=== PATIENT | male | born 1950 | race Caucasian/White ===

== ENCOUNTER 2022-08-05 13:07 | Outpatient (OUT) | payer MEDICARE, MEDICAID, SELFPAY ==
--- NOTE | 2022-08-05 13:51 | PM.CN ---
Consult Note: HPI Data of Consult Patient: known to practice within the last 3 years Consult date: 08/05/22 Requesting Physician: Karina Flores MD Primary Care Provider: Non-Staff Physician, Family Provider: CESARIO Consult Narrative Reason for consult: Right shoulder pain Narrative: This is a pleasant 72-year-old gentleman who presents for assessment. He notes persistence of right shoulder pain that is exacerbated with abduction and adduction, as well as lateral rotation. He previously underwent a right shoulder cortisone injection, which provided significant relief for greater than a three month period of time. He continues utilizing [employer], which provides relief. He otherwise denies adverse medication side effects or loss of bowel or bladder control. cc:: CC: Karina Flores MD Review of Systems ROS Status of ROS 10 or more systems reviewed and unremarkable except as noted in history and below Exam Constitutional Common normals: no apparent distress, oriented x3 and healthy appearing Respiratory Common normals: normal respiratory effort Effort & inspection: able to speak in complete sentences Extremity Common normals: normal to inspection Other: tenderness to palpation throughout the right shoulder. Pain is elicited with abduction and lateral rotation of the right shoulder. No erythema or signs of infection appreciated. Neuro Common normals: oriented x3, CN's II-XII intact bilaterally and no focal motor deficits Psych Common normals: mental status grossly normal and cooperative Assessment and Plan Assessment and Plan (1) Primary osteoarthritis, right shoulder: Plan this is a pleasant 72-year-old gentleman presents for assessment. He notes persistence of pain throughout his right shoulder that was previously treated well with a right shoulder intra-articular steroid injection. Given his current symptomatology and previous relief, it is prudent to repeat a right shoulder intra-articular injection. He is in agreement with this plan. Medications were reviewed, and no changes were made at this time. He has an upcoming surgery to remove his pannus. Follow-up in three months or sooner, if needed. Procedure: Right shoulder injection Medications: Bupivacaine 0.25% 4cc, kenalog 40mg I explained the details of the procedure to the patient including the risks, benefits, and alternatives.? We had an informed discussion.? The patient verbalized understanding and signed the consent form.? All questions were answered appropriately.? A time-out was performed.? After obtaining a comfortable prone position, the skin overlying the right shoulder was prepped with alcohol 3 times.? The sulcus between the head of the humerus and the acromion was identified.? The needle was inserted in a sterile manner 2 cm inferior and medial to the posterolateral corner of the acromion and was directed anteriorly toward the coracoid process. The contents of the syringe were gently injected without any resistance into the joint space after negative aspiration for blood or other bodily fluids.? The needle was removed and pressure was applied at the injection site to decrease the incidence of ecchymosis and hematoma formation.? A sterile bandage was applied.
== END 2022-08-05 13:08 | disposition home or self-care (01) ==
LOC: PM 13:08
PROVIDERS: Visit Provider Anesthesiology
DX: M25.551 Pain in right hip (principal); M19.011 Primary osteoarthritis, right shoulder
CPT/HCPCS: 20610

== ENCOUNTER 2022-11-28 08:31 | Outpatient (OUT) | payer MEDICARE, MEDICAID, SELFPAY ==
--- NOTE | 2022-11-28 08:34 | P.CN_ITS ---
Consult Note: HPI Data of Consult Patient: known to practice within the last 3 years Requesting Physician: Pam Ramirez NP Primary Care Provider: Non-Staff Physician, Family Provider: DMPERLA Consult Narrative Reason for consult: f/u Narrative: Cory Quan a pleasant 72 year old male presents for evaluation and management of chronic right shoulder pain. Today rating pain 0/10, reports continued relief from right shoulder injection cc:: CC: Pam Ramirez NP Review of Systems ROS Status of ROS 10 or more systems reviewed and unremarkable except as noted in history and below PFSH PFSH Medical History (Updated 08/14/22 @ 14:07 by Jacinta Guthrie) Atherosclerotic cardiovascular disease ?I25.10 - Atherosclerotic heart disease of [place] coronary artery without angina pectoris (ICD-10) Convulsion ?R56.9 - Unspecified convulsions (ICD-10) Depression ?F32.A - Depression, unspecified (ICD-10) Embolism ?I74.9 - Embolism and thrombosis of unspecified artery (ICD-10) Enlarged prostate ?N40.0 - Benign prostatic hyperplasia without lower urinary tract symptoms (ICD-10) High cholesterol ?E78.00 - Pure hypercholesterolemia, unspecified (ICD-10) Hypertension ?I10 - Essential (primary) hypertension (ICD-10) Hypothyroid ?E03.9 - Hypothyroidism, unspecified (ICD-10) Obesity ?E66.9 - Obesity, unspecified (ICD-10) Osteoarthritis ?M19.90 - Unspecified osteoarthritis, unspecified site (ICD-10) Sleep apnea ?G47.30 - Sleep apnea, unspecified (ICD-10) Venous thrombosis ?I82.90 - Acute embolism and thrombosis of unspecified vein (ICD-10) Surgical History H/O circumcision ?Z98.890 - Other specified postprocedural states (ICD-10) S/P carpal tunnel release ?Z98.890 - Other specified postprocedural states (ICD-10) S/P total knee arthroplasty ?Z96.659 - Presence of unspecified artificial knee joint (ICD-10) Meds Home Medications and Allergies Home Medications Medication Instructions Recorded Confirmed Type [place] Milk of Magnesia QDAY PRN constipation 08/14/22 History acetaminophen 500 mg tablet 500 mg PO Q6H PRN pain 08/14/22 08/14/22 History (Acetaminophen Extra Strength) apixaban 5 mg tablet (Eliquis) 5 mg PO BID 08/14/22 08/14/22 History bupropion HCl 100 mg tablet,12 hr 100 mg PO DAILY 08/14/22 08/14/22 History sustained-release docusate sodium 100 mg capsule 100 mg PO BID PRN constipation 08/14/22 08/14/22 History (Stool Softener) finasteride 5 mg tablet 5 mg PO DAILY 08/14/22 08/14/22 History furosemide 20 mg tablet (Lasix) 20 mg PO DAILY 08/14/22 08/14/22 History guaifenesin 100 mg/5 mL oral liquid 400 mg PO Q4H PRN cough 08/14/22 08/14/22 History hydrocodone 5 mg-acetaminophen 325 1 tab PO Q6H PRN pain 08/14/22 08/14/22 History mg tablet levothyroxine 100 mcg tablet 100 mcg PO DAILY 08/14/22 08/14/22 History (Euthyrox) melatonin 3 mg capsule 3 mg PO DAILY 08/14/22 08/14/22 History metoprolol tartrate 25 mg tablet 12.5 mg PO DAILY 08/14/22 08/14/22 History multivitamin 1 tab PO DAILY 08/14/22 08/14/22 History nystatin 100,000 unit/gram topical 1 applic topical DAILY 08/14/22 08/14/22 History powder nystatin 100,000 unit/gram topical 1 applic topical DAILY PRN rash 08/14/22 08/14/22 History powder (Nyamyc) polyethylene glycol 3350 17 gram 17 g PO DAILY PRN constipation 08/14/22 08/14/22 History oral powder packet (Miralax) potassium chloride 20 mEq 20 meq PO BID 08/14/22 08/14/22 History tablet,extended release simvastatin 10 mg tablet (Zocor) 10 mg PO QPM 08/14/22 08/14/22 History tamsulosin 0.4 mg capsule 0.4 mg PO DAILY 08/14/22 08/14/22 History topiramate 50 mg tablet 50 mg PO DAILY 08/14/22 08/14/22 History vitamin E 1 applic topical DAILY PRN skin 08/14/22 08/14/22 History irritation Allergies Allergy/AdvReac Type Severity Reaction Status Date / Time metformin Allergy Verified 08/14/22 13:16 Exam Constitutional Documenting provider has reviewed patient's vital signs: yes Common normals: no apparent distress, oriented x3, healthy appearing, alert and well nourished General appearance: cooperative HENMT Common normals: normocephalic, hearing grossly normal bilaterally and moist oral mucous membranes Head and scalp: normocephalic Eye Common normals: PERRL Pupil: PERRL Neck & C-Spine Common normals: full ROM General: normal visual inspection Chest Common normals: inspection of chest normal Respiratory Common normals: normal respiratory effort, no retractions and no use of accessory muscles Extremity Other: no pain with ROM in right shoulder, no tenderness over shoulder, no edema Neuro Common normals: oriented x3, CN's II-XII intact bilaterally, moves all extremities, no focal motor deficits, no sensory deficits noted and deep tendon reflexes 2+ bilaterally Sensorium/orientation: alert Motor exam: strength 5/5 throughout and no movement abnormalities noted Psych Common normals: mental status grossly normal, thought process normal, cooperative, affect normal, speech normal and activity/motor behavior normal Speech: normal speech Thought process: normal thought process Results Additional Findings Additional findings: I have checked an [facility] report on this patient today and there are no aberrancies noted in the prescribing history.?? A drug screen was completed and reviewed within the last year, and if there has not been a drug screen completed we ordered one today to monitor higher risk, state monitored pain medication use. As part of providing excellent, safe, comprehensive care, the following was completed at our patient's visit: 1. A medication reconciliation and review to ensure accurate knowledge of current/active medications, including asking our patients to inform us about any [id number] medications or herbal remedies/nutritional supplements/alternative remedies. 2. A review to specifically ensure our patients have had annual screening for: elevated body mass index (BMI), tobacco use, screening for depression, and screening for unhealthy alcohol use. When screening is concerning, patients are provided with education and the specific recommendation to discuss the concerning health issue and treatment options with their primary care provider. Assessment and Plan Assessment and Plan (1) Primary osteoarthritis, right shoulder: Plan f/u PRN, repeat right shoulder injection as needed in the future
== END 2022-11-28 08:32 | disposition home or self-care (01) ==
LOC: PM 08:31
PROVIDERS: Visit Provider Nurse Practitioner
DX: M19.011 Primary osteoarthritis, right shoulder (principal)
CPT/HCPCS: G0463